=== PATIENT | female | born 1960 | race Caucasian/White ===

== ENCOUNTER → 2023-06-04 16:01 | Outpatient (REF) | payer BC, SELFPAY ==
[2023-06-04 16:57] LABS: Free T4 1.24 ng/dl (0.78-2.19)
[2023-06-04 17:08] LABS: TSH 0.42 uIU/ml (0.47-4.68)
== END ==
LOC: REG 16:01
PROVIDERS: ATTENDING PHYSICIAN Physician Assistant Medical; FAMILY PHYSICIAN Family Medicine
DX: E03.9 Hypothyroidism, unspecified (principal)
CPT/HCPCS: 36415; 84439; 84443

== ENCOUNTER → 2023-07-24 07:28 | Outpatient (REF) | payer BC, SELFPAY | LOC: WDC 07:28 | PROVIDERS: ATTENDING PHYSICIAN Nurse Practitioner Adult Health; FAMILY PHYSICIAN Family Medicine | DX: Z12.31 Encounter for screening mammogram for malignant neoplasm of breast (principal); Z80.41 Family history of malignant neoplasm of ovary | CPT/HCPCS: 76830; 76856; 77063; 77067 ==

== ENCOUNTER → 2023-09-06 10:49 | Outpatient (REF) | payer BC, SELFPAY ==
[2023-09-06 12:28] LABS: TSH 3.08 uIU/ml (0.47-4.68)
== END ==
LOC: REG 10:49
PROVIDERS: ATTENDING PHYSICIAN Physician Assistant Medical
DX: E03.9 Hypothyroidism, unspecified (principal)
CPT/HCPCS: 36415; 84443

== ENCOUNTER → 2024-01-03 08:22 | Outpatient (REF) | payer BC, SELFPAY ==
[2024-01-03 09:39] LABS: % Basophils 0.5 % (0-2); % Eosinophils 6.9 % (0-6); % Lymphocytes 26.3 % (20.5-51.1); % Monocytes 8.7 % (1.7-9.3); % Neutrophils 56.6 % (42.2-75.2); Absolute Eosinophils 0.4 10^3/uL (0-0.7); Absolute Immature Granulocytes 0.1 10^3/uL (0-0.05); Absolute Lymphocytes 1.5 10^3/uL (1.2-3.4); Absolute Monocytes 0.5 10^3/uL (0.1-0.6); Absolute Neutrophils 3.3 10^3/uL (1.4-6.5); Hematocrit 41.7 % (37.0-47.0); Hemoglobin 14.1 g/dL (12.0-16.0); Mean Corp Hgb Conc. 33.8 g/dL (33.0-37.0); Mean Corpuscular Hgb 29.9 pg (27.0-31.0); Mean Corpuscular Volume 88.5 fL (81.0-99.0); Mean Platelet Volume 9.1 fL (7.4-10.4); Nucleated Red Blood Cells % 0 %; Platelet Count 329 10^3/uL (130-400); Red Blood Cell Count 4.71 10^6/uL (4.20-5.40); Red Cell Dist. Width 13.2 % (11.5-14.5); White Blood Cell Count 5.8 10^3/uL (4.8-10.8)
[2024-01-03 09:51] LABS: ALT (SGPT) 25 U/L (0-35); AST (SGOT) 27 U/L (14-36); Albumin 3.8 g/dl (3.5-5.0); Alkaline Phosphatase 81 U/L (38-126); Blood Urea Nitrogen 18 mg/dl (7-17); Calcium 9.2 mg/dl (8.4-10.2); Carbon Dioxide 26 mmol/L (22-30); Chloride 106 mmol/L (98-107); Glucose 92 mg/dl (70-99); HDL Cholesterol 43 mg/dl; LDL Cholesterol, Calculated 72 mg/dl; Potassium 4.4 mmol/L (3.5-5.1); Sodium 143 mmol/L (135-145); Total Bilirubin 0.7 mg/dl (0.2-1.3); Total Cholesterol 136 mg/dl (50-199); Total Protein 6.5 g/dl (6.3-8.2); Triglyceride 105 mg/dl (10-149); Very Low Density Lipoprotein 21 mg/dl (0-30); eGFR > 60.00
[2024-01-03 10:14] LABS: Free T4 0.98 ng/dl (0.78-2.19)
== END ==
LOC: REG 08:22
PROVIDERS: ATTENDING PHYSICIAN Physician Assistant Medical
DX: Z00.00 Encounter for general adult medical examination without abnormal findings (principal); E78.2 Mixed hyperlipidemia; E03.9 Hypothyroidism, unspecified
CPT/HCPCS: 36415; 80053; 80061; 84439; 84443; 85025

== ENCOUNTER → 2024-02-11 07:50 | Outpatient (REF) | payer BC, SELFPAY | LOC: CPAP 07:50 | PROVIDERS: ATTENDING PHYSICIAN Nurse Practitioner Adult Health | DX: Z01.419 Encounter for gynecological examination (general) (routine) without abnormal findings (principal) | CPT/HCPCS: 87624 ==

== ENCOUNTER → 2024-03-15 06:34 | Outpatient (REF) | payer BC, SELFPAY | LOC: MRI 06:34 | PROVIDERS: ATTENDING PHYSICIAN Orthopaedic Surgery Hand Surgery; FAMILY PHYSICIAN Physician Assistant Medical | DX: S83.241A Other tear of medial meniscus, current injury, right knee, initial encounter (principal) | CPT/HCPCS: 73721 ==

== ENCOUNTER 2024-05-14 07:01 | Outpatient (RCR) | payer BC, SELFPAY | END 2024-05-14 23:59 | disposition home or self-care (01) | LOC: RPT 07:01 | PROVIDERS: ATTENDING PHYSICIAN Orthopaedic Surgery Sports Medicine; FAMILY PHYSICIAN Family Medicine | DX: M17.11 Unilateral primary osteoarthritis, right knee (principal); Z73.6 Limitation of activities due to disability; R26.89 Other abnormalities of gait and mobility; M62.81 Muscle weakness (generalized); M25.561 Pain in right knee | CPT/HCPCS: 97110; 97140; 97162; 97530 ==

== ENCOUNTER 2024-06-11 08:09 | Outpatient (RCR) | payer BC, SELFPAY | END 2024-06-11 23:59 | disposition home or self-care (01) | LOC: RPT 08:09 | PROVIDERS: ATTENDING PHYSICIAN Orthopaedic Surgery Sports Medicine; FAMILY PHYSICIAN Family Medicine | DX: M17.11 Unilateral primary osteoarthritis, right knee (principal); Z73.6 Limitation of activities due to disability; R26.89 Other abnormalities of gait and mobility; M25.561 Pain in right knee; M62.81 Muscle weakness (generalized) | CPT/HCPCS: 97110; 97140; 97530 ==

== ENCOUNTER → 2024-07-08 08:30 | Outpatient (REF) | payer BC, SELFPAY ==
[2024-07-08 10:00] LABS: Free T4 1.32 ng/dl (0.78-2.19)
[2024-07-08 10:14] LABS: TSH 0.73 uIU/ml (0.47-4.68)
== END ==
LOC: REG 08:30
PROVIDERS: ATTENDING PHYSICIAN Physician Assistant Medical
DX: E03.9 Hypothyroidism, unspecified (principal)
CPT/HCPCS: 36415; 84439; 84443

== ENCOUNTER → 2024-08-13 07:38 | Outpatient (REF) | payer BC, SELFPAY | LOC: HWRAD 07:38 | PROVIDERS: ATTENDING PHYSICIAN Nurse Practitioner Adult Health; FAMILY PHYSICIAN Family Medicine | DX: Z12.31 Encounter for screening mammogram for malignant neoplasm of breast (principal); Z80.41 Family history of malignant neoplasm of ovary | CPT/HCPCS: 76830; 76856; 77063; 77067 ==

== ENCOUNTER → 2024-08-18 18:31 | Outpatient (REF) | payer BC, SELFPAY | LOC: MRI 3T 18:31 | PROVIDERS: ATTENDING PHYSICIAN Nurse Practitioner Adult Health; FAMILY PHYSICIAN Family Medicine | DX: N94.9 Unspecified condition associated with female genital organs and menstrual cycle (principal); Z80.41 Family history of malignant neoplasm of ovary | CPT/HCPCS: 72197; A9575 ==

== ENCOUNTER → 2024-12-11 12:17 | Outpatient (REF) | payer BC, SELFPAY | LOC: MRI 3T 12:17 | PROVIDERS: ATTENDING PHYSICIAN Orthopaedic Surgery Sports Medicine; FAMILY PHYSICIAN Physician Assistant Medical | DX: S83.241A Other tear of medial meniscus, current injury, right knee, initial encounter (principal) | CPT/HCPCS: 73721 ==